=== PATIENT | female | born 1975 | race Caucasian/White ===

== ENCOUNTER 2019-06-18 00:48 | Day surgery (SDC) | payer OTHER, SELFPAY ==
[2019-06-03 15:14] VITALS: BMI 45.4
--- NOTE | 2019-06-15 08:02 | PM.IMHP ---
H&P: HPI History of Present Illness Chief complaint: Rotator Cuff Tendonitis Narrative: Darby Bustillo is a 44 year old female who had previous surgery(SLAP repair) in 2016. She is right hand dominant and reports instability, stiffness, and weakness. The pain is anterior, posterior, and lateral as well as constant. 8/10 pain and onset >1 year. Exacerbated by motion, lifitng, rotational activites, prolonged activity, activities of daily living, reaching/ overhead motion and lying on affected side. Previous treatments have been anti inflammatories, ice, elevation, physical therapy. Review of Systems Review of Systems: All systems reviewed & are unremarkable except as noted in HPI and below Constitutional: Constitutional: Denies headache(s) and Denies weakness Eyes: Eyes: Denies blurry vision, Denies change in vision and Denies loss of vision ENT: Denies dizziness, Denies dry mouth, Denies headache(s) and Denies nasal congestion Cardiovascular: Cardiovascular: Denies chest pain, Denies syncope, Denies leg edema and Denies dyspnea on exertion Respiratory: Respiratory: Denies cough and Denies dyspnea on exertion Gastrointestinal: Gastrointestinal: Denies abdominal pain, Denies constipation and Denies diarrhea Genitourinary: Genitourinary: Denies urinary frequency Musculoskeletal: Musculoskeletal: Reports as per HPI and Denies numbness Integumentary/Breasts: Skin/Breast: Reports system reviewed and no additional complaints, except as docu Neurologic: Denies dizziness, Denies syncope, Denies headache(s), Denies loss of vision, Denies numbness and Denies weakness Psychiatric: Psychiatric: Reports no additional psychiatric complaints Endocrine: Endocrine: Reports no additional endocrine complaints Hematologic/Lymphatic: Hematologic/Lymphatic: Reports no additional hematologic/lymphatic complaints [facility], [facility] Past Medical History Medical History HTN (hypertension) Surgical History Surgical History H/O shoulder surgery Family History Family History Mother Hypertension Father Family history of malignant melanoma Other Arthritis Heart disease Neuropathy Social History Social History Smoking status: Never smoker Alcohol intake: current Substance use: unknown 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 [employer] Gender identity (if verbalized by the patient): Female Spiritual care concerns: No Meds Home Medications and Allergies Home Medications Medication Instructions Recorded Confirmed Type losartan 100 mg tablet 100 mg PO DAILY 04/19/19 06/03/19 History tramadol 50 mg tablet 50 mg PO Q6H PRN 04/19/19 06/03/19 History omega 7-enl-tlj-fish oil [Fish Oil] 1 cap PO DAILY 06/03/19 06/03/19 History psyllium husk [Metamucil] 1 tbsp PO DAILY 06/03/19 06/03/19 History Allergies Allergy/AdvReac Type Severity Reaction Status Date / Time No Known Allergies Allergy Unknown Verified 04/19/19 09:59 Exam Extrem: Other: Right upper extremity: normal to inspection, normal capillary refill, shoulder/upper arm (smooth rom. ) normal to inspection, tenderness, axillary nerve sensory function normal and abnormal ROM (rom RR 0 TO 160 DEG ABD 0 TO 160 DEG), elbow/forearm normal to inspection and hand normal to inspection and neuromotor exam normal; No cyanosis, edema or no joint enlargement Other: Shoulder exam Right Anterior apprehension negative Right relocation negative Right Anterior translation negative Right Posterior translation negative Right Inferior translation negative Left Anterior apprehension negative Left relocation negative Left Anterior translation negative Left Posterior translation negative Left Inferior translation negative Right positive
[2019-06-18] VITALS (7 sets, daily range): BP systolic 92–152; BP diastolic 65–90; PULSE 79–115; RESP 13–20; TEMP 36.4–37.1; O2SAT 98–100
[2019-06-18] MEDS: LACTATED RINGERS 1,000 ML 30 ML IV CONT ×2 (06:23→09:17)
[2019-06-18] MEDS: CELECOXIB 200 MG CAPSULE PO (06:30)
--- NOTE | 2019-06-18 06:50 | P.PNAN_ITS ---
Anes - Initial Pre Proc Eval Procedure: Operation Date: 06/18/19 07:30 Proposed Procedures p Right Rotator Cuff Repair - Rosales Cherry MD Date/Time: 06/18/19 06:50 Surgeon: Rosales Cherry MD Pre Op Diagnosis: Rotator Cuff Tendonitis Patient Data Age: 44 Gender: F Height: 1.63 m Weight: 117.4 kg Last Vital Signs Temp 37.1 C 06/18/19 06:30 Pulse 89 06/18/19 06:30 Resp 20 06/18/19 06:30 BP 152/90 H 06/18/19 06:30 Pulse Ox 100 06/18/19 06:30 Allergies Allergy/AdvReac Type Severity Reaction Status Date / Time No Known Allergies Allergy Unknown Verified 04/19/19 09:59 Home Medications Medication Instructions Recorded Confirmed Type losartan 100 mg tablet 100 mg PO DAILY 04/19/19 06/03/19 History tramadol 50 mg tablet 50 mg PO Q6H PRN 04/19/19 06/03/19 History omega 5-suc-ouk-fish oil [Fish Oil] 1 cap PO DAILY 06/03/19 06/03/19 History psyllium husk [Metamucil] 1 tbsp PO DAILY 06/03/19 06/03/19 History Patient hx anesthesia problems: none Family hx anesthesia problems: none PMFSH Past Medical History Medical History (Updated 06/17/19 @ 08:36 by Alek Abbott DO) HTN (hypertension) Morbid obesity Surgical History Surgical History (Updated 06/17/19 @ 08:36 by Alek Abbott DO) H/O shoulder surgery History of x2 History of hysterectomy Family History Family History Mother Hypertension Father Family history of malignant melanoma Other Arthritis Heart disease Neuropathy Social History Social History Smoking status: Never smoker Alcohol intake: current Substance use: unknown 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[employer] Gender identity (if verbalized by the patient): Female Spiritual care concerns: No Anes - Eval Final PreProcedure Day of Procedure 06/18/19 06:50 Patient weight: morbidly obese Heart: regular rate and rhythm Lungs: clear to auscultation and normal air movement Airway: Mallampati scale class III Neurological: alert and oriented Last oral intake: >/= 8 hours ASA classification: III Emergent: no Anesthetic plan: proceed Anesthesia type and monitoring: general ETT and standard monitoring Informed Consent: The patient's anesthetic plan and its attendant risks and benefits were discussed with the patient/family/POA. Questions were solicited and answers provided to the satisfaction of the patient/family/POA.
--- NOTE | 2019-06-18 06:52 | WPDANESPNB ---
Anes - Peripheral Nerve Block Date/Time: 06/18/19 06:52 I have discussed with the patient/family/POA the placement of a peripheral nerve block for post-operative pain management, including associated risks, benefits, complications, and side effects. Alternative methods of post-operative analgesia were detailed. Questions were solicited and answers provided to the satisfaction of the patient/family/POA. Time-Out: A pre-procedural Time-Out was completed immediately before starting the procedure and confirmed: Patient Identification, Site, Procedure, Patient Position and the Availability of Requisite Equipment. Clinical Indications: Acute post-operative pain management requested by the operative surgeon. Nerve Block Insertion Note Anes-nerve block: interscalene right Patient position: supine Skin prep: chlorhexidine Needle: 22 gauge, stimulating, insulated echogenic needle. Needle length: 50 mm Technique: ultrasound Injectate: bupivacaine 0.5% with epi 5 mcg/ml (30cc) Observations: tolerated well Complications: none Procedure start time:: 737 Procedure end time:: 743
--- NOTE | 2019-06-18 07:40 | WPDHPUPDATE1 ---
History and Physical Update Update Date/Time: 06/18/19 07:40 History and Physical has been reviewed, including an updated exam of the patient. There are NO changes in the patient's condition. Risks, benefits, and alternatives have been discussed and questions answered. Patient agrees to proceed with procedure.
[2019-06-18] MEDS: ceFAZolin 2 GM/D5W 50 ML 2 GM/50 ML BAG IVPB (07:44)
--- NOTE | 2019-06-18 09:46 | PM.OP ---
Procedure Note - Brief Procedure Note - Brief Date of procedure: 06/18/19 Pre-op diagnosis: Rotator Cuff Tendonitis Post-op diagnosis: same Procedure performed: R ROTATOR CUFF REPAIR Anesthesia: GETA Surgeon: Rosales Cherry MD Estimated blood loss (mL): 20 Drains: No Complications: No immediate complications Condition: stable Disposition: PACU
--- NOTE | 2019-06-18 10:28 | OP_ITS ---
DATE OF PROCEDURE: 06/18/2019 PREOPERATIVE DIAGNOSIS: Right shoulder rotator cuff tear. POSTOPERATIVE DIAGNOSIS: Right shoulder rotator cuff tear. PROCEDURE: Right rotator cuff repair. ANESTHESIA: General. COMPLICATIONS: None. INDICATIONS: This is a 44-year-old female who has a full-thickness rotator cuff tear to the right shoulder. She was in pain, was unable to control her pain. She was indicated for repair of right rotator cuff. DESCRIPTION OF PROCEDURE: The patient was taken to the operating room in stable condition and placed in supine position. General anesthesia was induced and then she was placed in the beach chair position and the right upper extremity was prepped and draped sterilely from the fingers to the axillary and cervical region. An incision was made right over the anterior lateral acromion down to the subcutaneous tissues. A mini-open incision was made through the deltoid muscle and the subacromial space was identified. A limited subacromial decompression was performed and then the greater tuberosity was identified and there was a full-thickness tear measuring approximately 1 cm through the supraspinatus tendon. The greater tuberosity was debrided and then one Arthrex suture anchor was placed and then using 4 FiberWire sutures, the rotator cuff was reinserted back into the greater tuberosity. The repair was excellent. There was no impingement of the repair from the acromion. The wound was irrigated thoroughly with 2 L of water and bacitracin solution and then the deltoid muscle was repaired with #2 FiberWire and 0 Vicryl suture. Subcutaneous tissue was approximated with 2-0 Vicryl and a 3-0 Quill stitch was used to approximate the subcuticular surface and then Dermabond was placed. Sterile dressing was applied. The patient was then placed back in the supine position. She was extubated and sent to Recovery. Chidi I MT: Juliet
== END 2019-06-18 10:50 | disposition home or self-care (01) ==
PROVIDERS: PCP Nurse Practitioner Family; Visit Provider Orthopaedic Surgery
PROC: (CPT 23420; principal; 2019-06-18 07:30)
DX: M75.101 Unspecified rotator cuff tear or rupture of right shoulder, not specified as traumatic (principal); G89.18 Other acute postprocedural pain; I10 Essential (primary) hypertension; E66.01 Morbid (severe) obesity due to excess calories; Z68.41 Body mass index [BMI] 40.0-44.9, adult
CPT/HCPCS: 64415; 23412; A4565; A9270; C1713; J0330; J0690; J1100; J2250; J2370; J2405; J2704; J3010; J7120